=== PATIENT | male | born 1965 | race African-American/Black ===

== ENCOUNTER 2023-08-27 04:07 | Emergency (ER) | payer OTHER ==
[~2023-08-27] VITALS: Ht 167.6 cm; Wt 87.0 kg
[2023-08-27 04:25] VITALS: BP 147/93; PULSE 88; RESP 20; TEMP 98.3
[2023-08-27] MEDS: LIDOCAINE 1% 10 ML VIAL SQ ONE (04:41)
[2023-08-27] MEDS: SULFAMETHOX/TRIMETH DS 800-160 MG/TABLET PO ONE (05:20)
[2023-08-27] MEDS: CEPHALEXIN MONOHYDRATE 500 MG CAPSULE PO ONE (05:20)
[2023-08-27] MEDS: OxyCODONE HCL/ACETAMINOPHEN 5-325 MG TABLET PO ONE (05:20)
[2023-08-27] MEDS ORDERED: SULF-261 PO (05:42)
[2023-08-27] MEDS ORDERED: CEPH-558 PO (05:42)
[2023-08-27] MEDS ORDERED: IBUP-1492 PO (05:42)
== END 2023-08-27 05:55 | disposition home or self-care (01) ==
LOC: EMS 04:09
DX: L02.213 Cutaneous abscess of chest wall (principal); F17.210 Nicotine dependence, cigarettes, uncomplicated
CPT/HCPCS: 99284; 10060; J3490

== ENCOUNTER 2024-01-12 21:12 | Emergency (ER) | payer OTHER ==
[~2024-01-12] VITALS: Ht 170.2 cm; Wt 81.8 kg
[~2024-01-12 21:12] MED LIST: CEPH-558 PO; IBUP-1492 PO; SULF-261 PO
[2024-01-12 22:06] LABS: BASOPHILS % (AUTO) 0.2 % (0.0-2.0); EOSINOPHILS % (AUTO) 1.4 % (1.0-6.0); HEMATOCRIT 42.3 % (41-53); HEMOGLOBIN 13.9 g/dL (13.5-17.5); LYMPHOCYTES # (AUTO) 1.2 K/uL (1.0-4.8); LYMPHOCYTES % (AUTO) 11.4 % (22.0-44.0); MEAN CORPUSCULAR HGB CONC 32.8 G/dL (31.0-37.0); MEAN CORPUSCULAR VOLUME 92 fL (80-100); MONOCYTES % (AUTO) 9.5 % (2.0-9.0); NEUTROPHILS # (AUTO) 8.5 K/uL (1.8-7.7); NEUTROPHILS % (AUTO) 77.5 % (40.0-70.0); PLATELET COUNT (AUTO) 240 K/uL (150-450); RED BLOOD CELL COUNT(AUTO) 4.63 MIL/uL (4.50-5.90); RED CELL DISTRIBUTION WIDTH 14.3 % (11.5-14.5)
[2024-01-12 22:12] LABS: ANION GAP 8 mmol/L (8-16); CALCIUM, TOTAL 8.7 mg/dL (8.8-10.5); CARBON DIOXIDE 30 mmol/L (22-29); CHLORIDE 100 mmol/L (98-107); CREATININE 1.07 mg/dL (0.60-1.30); GLOMERULAR FILTR. RATE CALC > 60 mL/min (>60); GLUCOSE,RANDOM 102 mg/dL (70-110); POTASSIUM 4.2 mmol/L (3.5-5.1); SODIUM SERUM 138 mmol/L (136-145); UREA NITROGEN, BLOOD 13 mg/dL (7-18)
[2024-01-12 23:18] LABS: TROPONIN I-HIGH SENSITIVITY 4 ng/L (<76)
[2024-01-13] MEDS ORDERED: SULF-261 PO (00:46)
[2024-01-13] MEDS ORDERED: CEPH-558 PO (00:46)
[2024-01-13] MEDS: CEPHALEXIN MONOHYDRATE 500 MG CAPSULE PO ONE (00:59)
[2024-01-13] MEDS: SULFAMETHOX/TRIMETH DS 800-160 MG/TABLET PO ONE (00:59)
[2024-01-13 01:06] VITALS: BP 157/102; PULSE 72; RESP 18; TEMP 98.3; O2SAT 98
== END 2024-01-13 01:05 | disposition home or self-care (01) ==
LOC: EMS 21:12
DX: L03.313 Cellulitis of chest wall (principal); R07.9 Chest pain, unspecified; F17.210 Nicotine dependence, cigarettes, uncomplicated; Z91.199 Patient's noncompliance with other medical treatment and regimen due to unspecified reason
CPT/HCPCS: 71045; 80048; 84484; 85025; 93005; 99284; 36415-L1; 36415-TC